=== PATIENT | male | born 2000 | race African-American/Black ===

== ENCOUNTER 2021-01-19 16:33 | Emergency (ER) | payer BC ==
--- OUTSIDE RECORDS SUMMARY | 2021-01-19 16:35 | XMS REPORT | Continuity of Care Document ---
:2000 Author Organization [facility] t Address [address] [place] [address] Care Team Providers Name Role Phone Provider, Urgent Care Attending Clinician Unavailable Doctor Unassigned, Name Attending Clinician Unavailable Jacob LAROSE G Attending Clinician Unavailable Problems This patient has no known problems. Allergies, Adverse Reactions, Alerts This patient has no known allergies or adverse reactions. Medications This patient has no known medications. Procedures This patient has no known procedures. Encounters Start End Encounter Admission Attending Care Care Encounter Source Date/Time Date/Time Type Type Clinicians Facility Department ID 2020-12-19 2020-12-19 Urgent Provider, [place] [id number] 10:20:00 10:40:00 Care [facility] [id number] Care [place] [id number] Profess [id number] [address] 2020-12-19 2020-12-19 Orders Doctor HERNANDEZ [id number] 00:00:00 00:00:00 Only UnassignedROSALES [id number] [place] [facility] [id number] 2020-01-13 2020-01-13 Telephone Bettina HERNANDEZ [id number] 00:00:00 00:00:00 Kavitha andrews [id number] [facility] [id number] Results This patient has no known results.
[2021-01-19] MEDS ORDERED: ONDANSETRON 4 MG (ODT) TAB ONE (17:30)
--- NOTE | 2021-01-19 18:53 | EDPHYS ---
Physician Documentation [facility] Name: Jeff Gore Age: 20 yrs Sex: Male : 2000 Arrival Date: 01/19/2021 Time: 16:34 Bed Waiting Private MD: ED Physician Good Langston HPI: 01/19 18:22 This 20 yrs old Black Male presents to ER via Ambulatory with complaints of Fever, kb Chills, Vomiting. 18:22 The patient or guardian reports cough, that is intermittent, described as mild, flu kb symptoms, low-grade fever, myalgias. Onset: The symptoms/episode began/occurred this morning. Severity of symptoms: At their worst the symptoms were moderate, in the emergency department the symptoms are unchanged. Modifying factors: The symptoms are alleviated by nothing, the symptoms are aggravated by nothing. Associated signs and symptoms: Pertinent positives: fever, nausea, rhinorrhea, sore throat, vomiting. The patient has not experienced similar symptoms in the past. The patient has not recently seen a physician. Patient reports cough, congestion, nausea vomiting, malaise fatigue headache fever and chills that started this morning.. Historical: - Allergies: 17:10 No Known Allergies; iw - Home Meds: 17:10 None [Active]; iw - PMHx: 17:10 Asthma; iw - PSHx: 17:10 None; iw - Immunization history:: Adult Immunizations not up to date, Client reports having NOT received the Covid vaccine. - Social history:: Smoking status: Patient denies any tobacco usage or history of. smokes marijuana. ROS: 18:21 Cardiovascular: Negative for chest pain, palpitations, and edema. kb 18:21 Constitutional: Positive for body aches, chills, fatigue, fever, malaise. 18:21 ENT: Positive for rhinorrhea, sinus congestion. 18:21 Respiratory: Positive for cough, Negative for dyspnea on exertion, hemoptysis, orthopnea, pleurisy, shortness of breath, sputum production, wheezing. 18:21 Abdomen/GI: Positive for nausea and vomiting, Negative for abdominal pain. 18:21 Neuro: Positive for headache. 18:21 All other systems are negative. Exam: 18:21 Head/Face: Normocephalic, atraumatic. ENT: Moist Mucous membranes Cardiovascular: kb Regular rate and rhythm with a normal S1 and S2. No gallops, murmurs, or rubs. No pulse deficits. Respiratory: Respirations even and unlabored. No increased work of breathing, no retractions or nasal flaring. Abdomen/GI: Soft, non-tender. No distention Skin: Warm, dry with normal turgor. Normal color. MS/ Extremity: Pulses equal, no cyanosis. Neurovascular intact. Full, normal range of motion. Neuro: Awake and alert, GCS 15, oriented to person, place, time, and situation. Moves all extremities. Normal gait. Psych: Awake, alert, with orientation to person, place and time. Behavior, mood, and affect are within normal limits. 18:21 Constitutional: The patient appears alert, awake, uncomfortable. Vital Signs: 16:57 BP 136 / 72; Pulse 84; Resp 18; Temp 99.4(O); Pulse Ox 99% ; mt 17:05 Weight 56.7 kg; Height 5 ft. 8 in. (172.72 cm) (R); mt 17:05 Body Mass Index 19.01 (56.70 kg, 172.72 cm) mt MDM: 17:32 Patient medically screened. kb 18:21 Data reviewed: vital signs, nurses notes. Data interpreted: Pulse oximetry: on room air kb is 99 %. Interpretation: normal. Counseling: I had a detailed discussion with the patient and/or guardian regarding: the historical points, exam findings, and any diagnostic results supporting the discharge/admit diagnosis, lab results, the need for outpatient follow up, a family practitioner, to return to the emergency department if symptoms worsen or persist or if there are any questions or concerns that arise at home. 01/19 17:12 Order name: COVID-19 : Document "Date of Symptom Onset" if Symptomatic. iw 01/19 17:12 Order name: Flu; Complete Time: 18:21 iw 01/19 18:31 Order name: SARS-COV-2 RT PCR; Complete Time: 18:50 EDMS Administered Medications: 17:56 Drug: Ondansetron 4 mg Route: PO; kb Disposition Summary: 01/19/21 18:52 Discharge Ordered Location: Home kb Condition: Stable kb Diagnosis - Viral infection, unspecified kb - Acute upper respiratory infection, unspecified kb Followup: kb - With: Emergency Department - When: As needed - Reason: Worsening of condition Followup: kb - With: Private Physician - When: 2 - 3 days - Reason: Recheck today's complaints, Continuance of care, Re-evaluation by your physician Discharge Instructions: - Discharge Summary Sheet kb - Upper Respiratory Infection, Adult, [id number] kb - Viral Respiratory Infection, [id number] kb - COVID-19 kb Forms: - Medication Reconciliation Form kb - Thank You Letter kb - Antibiotic Education kb - Prescription Opioid Use kb Prescriptions: - Zofran 4 mg Oral Tablet - take 1 tablet by ORAL route every 6 hours As needed; 20 tablet; Refills: 0, kb Product Selection Permitted Addendum: 01/22/2021 07:10 Co-signature as Attending Physician, Good Langston MD I agree with the assessment and k dr plan of care. Signatures: Dispatcher [employer] EDMS Sylvie Vazquez, LOCOMOTIVE CRANE OPERATOR-C LOCOMOTIVE CRANE OPERATOR-Good Wooten MD MD kdr Sachi Hudson RN RN iw Corrections: (The following items were deleted from the chart) 01/19 17:35 17:12 CORONAVIRUS ordered. EDID EDMS
--- NOTE | 2021-01-19 18:53 | ER ---
Nurse's Notes [facility] Name: Jeff Gore Age: 20 yrs Sex: Male : 2000 Arrival Date: 01/19/2021 Time: 16:34 Bed Waiting Private MD: Diagnosis: Viral infection, unspecified;Acute upper respiratory infection, unspecified Presentation: 01/19 17:09 Chief complaint: Patient states: Pt reports cough, congestion, n/v, malaise, fatigue, iw headache, fever, chills that started this morning. Coronavirus screen: Client denies travel out of the [place] in the last 14 days. chills, congestion, cough unrelated to allergies, diarrhea, fatigue, fever, muscle pain, nausea, shaking with chills, vomiting. Ebola Screen: Patient positive for the following Ebola Virus Disease associated symptoms: severe headache, muscle pain, vomiting, diarrhea. Initial Sepsis Screen: Does the patient meet any 2 criteria? No. Patient's initial sepsis screen is negative. Does the patient have a suspected source of infection? No. Patient's initial sepsis screen is negative. Risk Assessment: Do you want to hurt yourself or someone else? Patient reports no desire to harm self or others. Onset of symptoms was January 19, 2021. 17:09 Acuity: LOU 4 iw 17:09 Method Of Arrival: Ambulatory iw Triage Assessment: 17:12 General: Appears uncomfortable, Behavior is cooperative. Pain: Complains of pain in top iw of head. GI: Reports nausea, vomiting. Historical: - Allergies: 17:10 No Known Allergies; iw - Home Meds: 17:10 None [Active]; iw - PMHx: 17:10 Asthma; iw - PSHx: 17:10 None; iw - Immunization history:: Adult Immunizations not up to date, Client reports having NOT received the Covid vaccine. - Social history:: Smoking status: Patient denies any tobacco usage or history of. smokes marijuana. Vital Signs: 16:57 BP 136 / 72; Pulse 84; Resp 18; Temp 99.4(O); Pulse Ox 99% ; mt 17:05 Weight 56.7 kg; Height 5 ft. 8 in. (172.72 cm) (R); mt 17:05 Body Mass Index 19.01 (56.70 kg, 172.72 cm) sc ED Course: 16:34 Patient arrived in ED. ds1 16:57 called into lobby for "about to pass out", checked out patient, vitals are stable, mt patient states he feels better. 17:10 Triage completed. iw 17:12 Arm band placed on left wrist. iw 17:55 Sylvie Vazquez FNP-C is [facility]. kb 17:55 Good Langston MD is Attending Physician. kb Administered Medications: 17:56 Drug: Ondansetron 4 mg Route: PO; kb Outcome: 18:52 Discharge ordered by . kb 18:59 Patient left the ED. kb Signatures: Sylvie Vazquez FNP-C FNP-Kim Hernandez ds1 Sachi Hudson, RN RN Tavia Camara sc
[2021-01-19 19:04] VITALS: BP 136/72; TEMP 99.4; O2SAT 99
== END 2021-01-19 18:59 | disposition home or self-care (01) ==
LOC: ER 16:33
DX: B34.9 Viral infection, unspecified (principal); J06.9 Acute upper respiratory infection, unspecified; Z20.822 Contact with and (suspected) exposure to COVID-19
CPT/HCPCS: 87804 ×2; 99282; U0003